=== PATIENT | female | born 1975 | race Caucasian/White ===

== ENCOUNTER 2021-09-12 09:25 | Emergency (ER) | payer MEDICAID ==
[~2021-09-12] VITALS: Ht 175.3 cm; Wt 60.0 kg
[~2021-09-12 09:25] MED LIST: IBUP-1984 PO; LEVA15HF4 IH; LORA-512 PO; NO HOME MEDS; OMEP-84 PO
[2021-09-12 09:30] VITALS: BP 120/75
[2021-09-13] MEDS ORDERED: HYDR-3965 PO (21:12)
[2021-09-13] MEDS ORDERED: NAPR-56 PO (21:12)
== END 2021-09-12 15:49 | disposition left against medical advice (07) ==
LOC: ER 09:25
DX: R10.9 Unspecified abdominal pain (principal); Z53.21 Procedure and treatment not carried out due to patient leaving prior to being seen by health care provider

== ENCOUNTER 2021-09-13 16:40 | Emergency (ER) | payer MEDICAID ==
[~2021-09-13] VITALS: Ht 175.3 cm; Wt 60.0 kg
[2021-09-13] MEDS ORDERED: morphine 4 MG/ML inj SYRINge IV ONE (17:25)
[2021-09-13] MEDS ORDERED: ondansetron/PF 4mg/2ml inj IV ONE (17:25)
[2021-09-13] MEDS ORDERED: normal saline 1000ML IV soln IVB ONE (17:25)
[2021-09-13 17:29] VITALS: BP 122/73
[2021-09-13 20:15] LABS: BASOPHILS # (AUTO) 0.2 X10'3 (0-0.2); EOSINOPHILS # (AUTO) 0.2 X10'3 (0-0.9); HEMATOCRIT 39.9 % (35.0-45.0); LYMPHOCYTES # (AUTO) 2.6 X10'3 (1.1-4.8); LYMPHOCYTES % (AUTO) 26.7 % (21-51); MEAN CORPUSCULAR HEMOGLOBIN 33.8 PG (27.0-31.0); MEAN CORPUSCULAR HGB CONC 35.2 g/dL (33.0-36.5); MEAN CORPUSCULAR VOLUME 95.9 FL (78-98); MEAN PLATELET VOLUME 8.1 FL (7.4-10.4); MONOCYTES # (AUTO) 0.6 X10'3 (0-0.9); NEUTROPHILS # (AUTO) 6.1 X10'3 (1.8-7.7); NEUTROPHILS % (AUTO) 63.3 % (42-75); PLATELET COUNT 284 X10'3 (140-440); RED BLOOD COUNT 4.16 X10'6 (4.20-5.60); RED CELL DISTRIBUTION WIDTH 12.5 % (11.5-14.5); WHITE BLOOD COUNT 9.7 X10'3 (4.5-11.0)
[2021-09-13] MEDS ORDERED: iohexol 300mg/ml 100ml inj. ONE (20:15)
[2021-09-13 20:24] LABS: PARTIAL THROMBOPLASTIN TIME 24 SECONDS (22-32)
[2021-09-13 20:26] LABS: ALANINE AMINOTRANSFERASE 28 U/L (12-78); ALBUMIN 4.4 G/DL (3.4-5.0); ALBUMIN/GLOBULIN RATIO 1.2 (1.1-1.5); ALKALINE PHOSPHATASE 50 IU/L (46-116); ANION GAP 11 (8-16); ASPARTATE AMINO TRANSFERASE 23 U/L (10-37); BILIRUBIN,TOTAL 0.6 MG/DL (0.1-1.0); BLOOD UREA NITROGEN 13 MG/DL (7-18); CALCIUM 8.9 MG/DL (8.5-10.1); CHLORIDE 101 MMOL/L (99-107); CREATININE 0.81 MG/DL (0.40-0.90); GLUCOSE 96 MG/DL (70-104); SODIUM 140 MMOL/L (135-145); eGFR 76 ML/MIN
--- NOTE | 2021-09-13 20:36 | NUR ---
PATIENT TO CT
[2021-09-13] MEDS ORDERED: NAPR-56 PO (21:12)
[2021-09-13] MEDS ORDERED: HYDR-3965 PO (21:12)
[2021-09-13] MEDS ORDERED: ketorolac trometh. 30mg/ml inj. IV ONE (21:15)
== END 2021-09-13 21:25 | disposition home or self-care (01) ==
LOC: ER 16:40
DX: R10.32 Left lower quadrant pain (principal); N83.202 Unspecified ovarian cyst, left side; G89.29 Other chronic pain; F12.90 Cannabis use, unspecified, uncomplicated; F15.90 Other stimulant use, unspecified, uncomplicated; Z90.89 Acquired absence of other organs; Z90.49 Acquired absence of other specified parts of digestive tract; Z98.51 Tubal ligation status; Z98.890 Other specified postprocedural states; Z72.89 Other problems related to lifestyle; Z56.0 Unemployment, unspecified; Z88.2 Allergy status to sulfonamides; Z88.5 Allergy status to narcotic agent; Z91.040 Latex allergy status; Z88.8 Allergy status to other drugs, medicaments and biological substances; Z79.899 Other long term (current) drug therapy
CPT/HCPCS: 36415; 74177; 80053; 85025; 85610; 85730; 96374; 96375; 99285; J1885; J2270; J2405; J7030; Q9967